=== PATIENT | male | born 1965 | race Caucasian/White ===

== ENCOUNTER 2019-06-11 05:37 | Emergency (ER) | payer MEDICAID ==
[~2019-06-11] VITALS: Ht 162.6 cm; Wt 88.5 kg
--- NOTE | 2019-06-11 06:00 | PHYS DOC ---
Past Medical History Past Medical History: Asthma, Diabetes-Type II (JASSON DOWNEY DO) Past Surgical History: No Surgical History (JASSON DOWNEY DO) Smoking: Cigarettes Alcohol Use: Heavy Drug Use: None (JASSON DOWNEY DO) Adult General Chief Complaint Chief Complaint: SHORTNESS OF BREATH HPI HPI 53-year-old male presents via EMS with 3 day history of shortness of air and cough. Reports has "coughing fits "that caused him to shake afterwards. Reports subjective fever and chills. Denies leg swelling or calf tenderness. Denies known sick contacts. Patient does report current smoking history. (JASSON DOWNEY DO) Review of Systems Review of Systems Constitutional: Reports subjective fever and chills Eyes: Denies redness or eye pain HENT: Denies nasal congestion or sore throat Respiratory: Reports cough, wheezing, and shortness of breath Cardiovascular: Reports chest tightness; denies palpitations GI: Denies abdominal pain, nausea, or vomiting : Denies dysuria or hematuria Musculoskeletal: Denies back pain or joint pain Integument: Denies rash or skin lesions Neurologic: Denies headache, focal weakness or sensory changes Complete systems were reviewed and found to be within normal limits, except as documented in this note. (JASSON DOWNEY DO) Current Medications Current Medications Current Medications Medications (Trade) Dose Ordered Sig/Ceasar Start Time Stop Time Status Last Admin Dose Admin Albuterol/ Ipratropium (Duoneb) 3 ml 1X ONCE 06/11/19 06:30 06/11/19 06:31 DC 06/11/19 06:04 3 ML Dexamethasone Sodium Phosphate (Decadron) 10 mg 1X ONCE 06/11/19 06:30 06/11/19 06:31 DC 06/11/19 06:20 10 MG Ketorolac Tromethamine (Toradol 30mg Vial) 30 mg 1X ONCE 06/11/19 07:30 06/11/19 07:31 DC 06/11/19 07:35 30 MG Sodium Chloride 1,000 ml @ 1,000 mls/hr 1X ONCE 06/11/19 06:30 06/11/19 07:29 DC 06/11/19 06:22 1,000 MLS/HR (AUBRIE RUIZ Jr. DO) Allergies Allergies Allergies Coded Allergies Type Severity Reaction Last Updated Verified No Known Drug Allergies 06/11/19 No (AUBRIE RUIZ Jr. DO) Physical Exam Physical Exam Constitutional: Well developed, well nourished, no acute distress, non-toxic appearance HENT: Normocephalic, atraumatic, oropharynx moist Eyes: Conjunctiva normal, no discharge Neck: Normal range of motion, no tenderness, supple Cardiovascular: Heart rate normal, regular rhythm Lungs & Thorax: Bilateral breath sounds equal but diminished at bases, no distress Abdomen: Soft, no tenderness Skin: Warm, dry, no erythema, no rash Extremities: No tenderness, ROM intact, no edema Neurologic: Alert and oriented X 3, no focal deficits noted Psychologic: Affect normal, judgement normal (JASSON DOWNEY DO) Current Patient Data Vital Signs Vital Signs Date Time Temp Pulse Resp B/P (MAP) Pulse Ox O2 Delivery O2 Flow Rate FiO2 06/11/19 07:10 96 18 135/93 (107) 94 Room Air 06/11/19 06:02 3.0 06/11/19 05:37 98.3 98.3 (AUBRIE RUIZ Jr. DO) Lab Values Laboratory Tests Test 06/11/19 05:45 06/11/19 05:47 06/11/19 06:03 Sodium Level 142 mmol/L (136-145) Potassium Level 4.1 mmol/L (3.5-5.1) Chloride Level 103 mmol/L (98-107) Carbon Dioxide Level 28 mmol/L (21-32) Anion Gap 11 (6-14) Blood Urea Nitrogen 11 mg/dL (8-26) Creatinine 0.9 mg/dL (0.7-1.3) Estimated GFR (Cockcroft-Gault) 89.0 BUN/Creatinine Ratio 12 (6-20) Glucose Level 131 mg/dL (70-99) H Lactic Acid Level 1.5 mmol/L (0.4-2.0) Calcium Level 9.4 mg/dL (8.5-10.1) Magnesium Level 1.8 mg/dL (1.8-2.4) Total Bilirubin 0.7 mg/dL (0.2-1.0) Aspartate Amino Transferase (AST) 128 U/L (15-37) H Alanine Aminotransferase (ALT) 205 U/L (16-63) H Alkaline Phosphatase 101 U/L (46-116) Creatine Kinase 69 U/L (39-308) Creatine Kinase MB (Mass) 0.7 ng/mL (0.0-3.6) Creatine Kinase MB Relative Index % (0-4) Troponin I Quantitative < 0.017 ng/mL (0.000-0.055) IA-Yyb-M-Type Natriuretic Peptide 13 pg/mL (0-124) Total Protein 8.7 g/dL (6.4-8.2) H Albumin 4.0 g/dL (3.4-5.0) Albumin/Globulin Ratio 0.9 (1.0-1.7) L Lipase 111 U/L (73-393) White Blood Count 9.1 x10^3/uL (4.0-11.0) Red Blood Count 4.97 x10^6/uL (4.30-5.70) Hemoglobin 16.9 g/dL (13.0-17.5) Hematocrit 48.9 % (39.0-53.0) Mean Corpuscular Volume 99 fL (79-100) Mean Corpuscular Hemoglobin 34 pg (25-35) Mean Corpuscular Hemoglobin Concent 35 g/dL (31-37) Red Cell Distribution Width 13.1 % (11.5-14.5) Platelet Count 194 x10^3/uL (140-400) Neutrophils (%) (Auto) 58 % (31-73) Lymphocytes (%) (Auto) 30 % (24-48) Monocytes (%) (Auto) 10 % (0-9) H Eosinophils (%) (Auto) 1 % (0-3) Basophils (%) (Auto) 1 % (0-3) Neutrophils # (Auto) 5.3 x10^3/uL (1.8-7.7) Lymphocytes # (Auto) 2.7 x10^3/uL (1.0-4.8) Monocytes # (Auto) 0.9 x10^3/uL (0.0-1.1) Eosinophils # (Auto) 0.1 x10^3/uL (0.0-0.7) Basophils # (Auto) 0.1 x10^3/uL (0.0-0.2) D-Dimer (Heather) < 0.27 ug/mlFEU Influenza Type A Antigen Negative (NEGATIVE) Influenza Type B Antigen Negative (NEGATIVE) Laboratory Tests 06/11/19 05:47 Laboratory Tests 06/11/19 05:45 (AUBRIE RUIZ Jr., DO) EKG EKG @0543 NSR at 93bpm, J point elevation V2-V4 (JASSON DOWNEY DO) Radiology/Procedures Radiology/Procedures [] (JASSON DOWNEY DO) Impressions: PROCEDURE: CHEST PA & LATERAL CHEST PA LATERAL Technique: PA and lateral views of the chest were obtained. Clinical History: Dyspnea Comparison: None. Findings: The heart and pulmonary vasculature appear within normal limits. The lungs are clear. The pleural margins are clear. Impression: No acute chest process is seen. Electronically signed by: Che Santos III, MD (06/11/2019 6:17 AM) [id number] DICTATED and SIGNED BY: CHE SANTOS III, MD DATE: 06/11/19616 (AUBRIE RUIZ Jr., DO) Course & Med Decision Making Course & Med Decision Making Pertinent Labs and Imaging studies reviewed. (See chart for details) Patient presents via EMS with report of shortness of air with cough 3 days. Patient noted to be hypoxic down to 87% on RA. Improved with supplemental O2. EKG stable. Labs pending including rapid influenza. Chest x-ray pending. Respiratory neb and steroid provided. Sign out given to Dr. Ruiz for further evaluation and final disposition. Discussed current findings and plan with patient, who acknowledges understanding and agreement. (JASSON DOWNEY DO) Course & Med Decision Making Patient was reevaluated upon completion of workup. Findings were reviewed with patient. I did find that a d-dimer had not been ordered and one has been ordered. D-dimer was reviewed and found to be normal. Patient does report improvement in symptoms and after removing from oxygen, patient's O2 sats have been stable in the mid 90s. Patient will be discharged from emergency room and will be transported back to [facility]. (AUBRIE RUIZ Jr., DO) Dragon Disclaimer Dragon Disclaimer This electronic medical record was generated, in whole or in part, using a voice recognition dictation system. (JASSON DOWNEY DO) Departure Departure Impression: Primary Impression: Shortness of breath Additional Impression: Hypoxia Disposition: HOME, SELF-CARE Condition: STABLE Patient Instructions: Shortness of Breath Critical Care Time Critical care time was 30 minutes which includes time at bedside, spent in discussion of patient's care with specialists and/or family members, with interpretation of laboratory and/or radiological studies and is exclusive of procedures. (JASSON DOWNEY DO) Problem Qualifiers JASSON DOWNEY DO Jun 11, 2019 06:00 AUBRIE RUIZ Jr., DO Jun 11, 2019 07:00
[2019-06-11 06:04] LABS: BASO # 0.1 x10^3/uL (0.0-0.2); BASO % 1 % (0-3); EOS # 0.1 x10^3/uL (0.0-0.7); EOS % 1 % (0-3); HEMATOCRIT 48.9 % (39.0-53.0); HEMOGLOBIN 16.9 g/dL (13.0-17.5); LYMPH # 2.7 x10^3/uL (1.0-4.8); LYMPH % 30 % (24-48); MEAN CORPUSCULAR HEMOGLOBIN 34 pg (25-35); MEAN CORPUSCULAR HGB CONC 35 g/dL (31-37); MEAN CORPUSCULAR VOLUME 99 fL (79-100); MONO # 0.9 x10^3/uL (0.0-1.1); MONO % 10 % (0-9); NEUT # 5.3 x10^3/uL (1.8-7.7); NEUT % 58 % (31-73); PLATELET COUNT 194 x10^3/uL (140-400); RED BLOOD COUNT 4.97 x10^6/uL (4.30-5.70); RED CELL DISTRIBUTION WIDTH 13.1 % (11.5-14.5); WHITE BLOOD COUNT 9.1 x10^3/uL (4.0-11.0)
[2019-06-11 06:14] LABS: CALCIUM 9.4 mg/dL (8.5-10.1); CREATININE 0.9 mg/dL (0.7-1.3); POTASSIUM 4.1 mmol/L (3.5-5.1)
[2019-06-11 06:19] LABS: ALBUMIN/GLOBULIN RATIO 0.9 (1.0-1.7); MAGNESIUM 1.8 mg/dL (1.8-2.4); TOTAL BILIRUBIN 0.7 mg/dL (0.2-1.0); TOTAL PROTEIN 8.7 g/dL (6.4-8.2)
--- NOTE | 2019-06-11 06:20 | RAD ---
CHEST PA LATERAL Technique: PA and lateral views of the chest were obtained. Clinical History: Dyspnea Comparison: None. Findings: The heart and pulmonary vasculature appear within normal limits. The lungs are clear. The pleural margins are clear. Impression: No acute chest process is seen. Electronically signed by: Reece Ariza III, MD (06/11/2019 6:17 AM) [facility]
[2019-06-11 06:29] LABS: CREATINE KINASE 69 U/L (39-308)
[2019-06-11] MEDS ORDERED: IPRATRPIUM/ALBUTEROL 0.5/2.5MG 3 ML NEBU. NEB ONE (06:30)
[2019-06-11] MEDS ORDERED: DEXAMETHASONE SOD PHOS 4 MG/ML VIAL IVP ONE (06:30)
[2019-06-11] MEDS ORDERED: IV NORMAL SALINE 1000ML BAG 1,000 ML IV ONE (06:30)
[2019-06-11 06:51] LABS: INFLUENZA A PATIENT NEGATIVE (NEGATIVE); INFLUENZA B PATIENT NEGATIVE (NEGATIVE)
[2019-06-11] MEDS ORDERED: KETOROLAC 30 MG/ML VIAL. IVP ONE (07:30)
[2019-06-11 09:40] VITALS: BP 127/61
--- NOTE | 2019-06-11 13:55 | EKG ---
[facility] [address] [place] [address] Test Date: 2019-06-11 Test Time: 05:43:51 Pat Name: RACHAEL YANEZ Department: Room: Gender: M Director Product Safety: : 1965 Requested By: JASSON DOWNEY Order Number: [id number] Reading MD: Measurements Intervals Darby Rate: 93 P: 55 AR: 130 QRS: 80 QRSD: 82 T: 42 QT: 330 QTc: 412 Interpretive Statements SINUS RHYTHM NON SPECIFIC ST-T ABNORMALITY (ELEVATION) OTHERWISE NORMAL ECG No previous ECG available for comparison
== END 2019-06-11 09:50 | disposition home or self-care (01) ==
LOC: ER 05:37
DX: R06.02 Shortness of breath (principal); R09.02 Hypoxemia; J45.909 Unspecified asthma, uncomplicated; E11.9 Type 2 diabetes mellitus without complications; F17.210 Nicotine dependence, cigarettes, uncomplicated; F10.20 Alcohol dependence, uncomplicated; Y90.9 Presence of alcohol in blood, level not specified
CPT/HCPCS: 36415; 71046; 80053; 82553; 83605; 83690; 83735; 83880; 84484; 85025; 85379; 87804; 93005; 94640; 96374; 96375; 99285; J1100; J1885; J7030; J7620

== ENCOUNTER 2021-11-19 22:44 | Emergency (ER) | payer MEDICAID ==
[~2021-11-19] VITALS: Ht 165.1 cm; Wt 79.5 kg
[2021-11-19 23:09] VITALS: BP 125/56
[2021-11-19 23:34] LABS: INFLUENZA A PATIENT NEGATIVE (NEGATIVE); INFLUENZA B PATIENT NEGATIVE (NEGATIVE)
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
--- NOTE | 2021-11-20 00:32 | RAD ---
EXAMINATION: CT LUMBAR SPINE WO, 11/19/2021 11:34 PM CLINICAL INDICATION: Chronic low back pain COMPARISON: None TECHNIQUE: Helical CT imaging performed of the lumbar spine without the use of intravenous contrast. Sagittal and coronal reformats were obtained. One or more of the following individualized dose reduction techniques were utilized for this examinat ion: 1. Automated exposure control 2. Adjustment of the mA and/or kV according to patient size 3. Use of iterative reconstruction technique. FINDINGS: There 5 nonrib-bearing lumbar vertebral bodies. No acute fracture. 2 mm anterolisthesis of L5 on S1. Mild disc space narrowing at L5-S1. There are small anterior osteophytes throughout the lum bar spine. T12-L1: No disc herniation or canal or foraminal narrowing. L1-L2: No disc herniation or canal or foraminal narrowing. L2-L3: Small broad-based disc bulge. Mild canal narrowing. No foraminal narrowing. L3-L4: Small broad-based disc bulge and mild posterior endplate proliferation. Mild canal narrowing. No foraminal narrowing. Mild facet arthrosis. L4-L5: There is a broad-based disc bulge with superimposed central and left foraminal protrusion disc . There is likely moderate canal narrowing. Mild bilateral foraminal narrowing. Mild facet arthrosis. L5-S1: Trace anterolisthesis uncovers a small broad-based disc bulge. This may with severe bilateral facet arthrosis results in at least moderate right greater than left foraminal narrowing. No central canal narrowing. There are calcifications in the abdominal aorta. There is a 4.2 x 2.8 cm cystic structure in the head of the pancreas. Mild calcified aortic atherosclerosis. IMPRESSION: 1. No acute osseous abnormality. 2. Degenerative disc disease, greatest at L4-L5 and L5-S1. Moderate canal narrowing at L4-L5 and at l east moderate right greater than left foraminal narrowing at L5-S1. 3. Severe facet arthrosis at L5-S1. 4. 4.2 cm cystic lesion in the head of the pancreas. This is indeterminate and could be a cystic neop lasm or pseudocyst. Recommend nonemergent CT or MRI with pancreas protocol to further evaluate. Electronically signed by: Devorah Sharp MD (11/20/2021 12:30 AM) [facility]
--- NOTE | 2021-11-20 01:01 | RAD ---
EXAM: XR CHEST 1V 11/19/2021 11:34 PM CLINICAL INDICATION: Cough COMPARISON: Chest radiograph 06/11/2019 TECHNIQUE: AP upright view of the chest FINDINGS: Heart is normal in size. Lungs are well-expanded. There is calcified granuloma in the left lung. No consolidation, pleural effusion or pneumothorax. IMPRESSION: No acute cardiopulmonary abnormality. Electronically signed by: Deovrah Sharp MD (11/20/2021 12:59 AM) [facility]
== END 2021-11-20 00:55 | disposition home or self-care (01) ==
LOC: ER 22:44
DX: R05.9 Cough, unspecified (principal); Z20.822 Contact with and (suspected) exposure to COVID-19; R06.02 Shortness of breath; G89.29 Other chronic pain; M54.50 Low back pain, unspecified; Z59.00 Homelessness unspecified; K86.2 Cyst of pancreas; M47.816 Spondylosis without myelopathy or radiculopathy, lumbar region; E11.9 Type 2 diabetes mellitus without complications; J45.909 Unspecified asthma, uncomplicated; F17.200 Nicotine dependence, unspecified, uncomplicated
CPT/HCPCS: 71045; 72131; 87428; 99285; C9803; U0003